=== PATIENT | female | born 1960 | race Caucasian/White ===

== ENCOUNTER 2017-02-22 07:01 | Day surgery (SDC) | payer OTHER ==
[~2017-02-22] VITALS: Ht 167.6 cm; Wt 67.1 kg
--- NOTE | ~2017-02-22 | CATH ---
Cardiac Diagnostic Report Demographics Patient Name ALEJANDRA Walsh Gender Female Date of 1960 Age 56 year(s) Patient Number [id number] Date of Study 02/22/2017 Visit Number [id number] Room Number Corporate ID Ht 167.64 cm Wt 66.22 kg Accession Number [id number] BSA 1.75 m kg/m Referring Phoebe HOFF Primary Physician Physician Jon LOMBARDO Performing Phoebe HOFF Secondary Physician Physician Jon Diagnostic Phoebe HOFF Assisting Physician Physician Jon Interventional Physician Locomotive Electrician Physician Findings and Conclusions Diagnostic Findings and Conclusion Normal coronary arteries Diagnostic Recommendations Primary prevention Evaluate for other noncardiac etiology of chest pain. Procedure Description The patient was brought to the diagnostic cardiac catheterization-EP laboratory in the fasting, non-sedated state. Informed consent was obtained in the written and verbal form after the risks and benefits were explained. The patient had no further questions and agreed to proceed. The planned puncture-incision site(s) were shaved and prepped with ChloraPrep and draped in the usual sterile manner. Conscious sedation, supplemental oxygen, and pain control medications were delivered by a registered nurse under physician guidance. Surface ECG rhythm, blood pressure measurement, and pulse oximetry were monitored throughout the procedure. Arterial access. The right radial access site was infiltrated with lidocaine. The vessel was entered with the Seldinger technique. A 5f radial sheath was advanced into the vessel and used for catheter placement. Selective left coronary angiography. A TIG catheter was advanced into the left coronary vessel ostium under Fluoroscopic guidance. Contrast was injected by hand. Images were obtained in multiple projections. Selective right coronary angiography. A catheter was advanced into the right coronary vessel ostium under fluoroscopic guidance. Contrast was injected by hand. Images were obtained in multiple projections. Left heart catheterization. A catheter was advanced across the aortic valve to the left ventricle under fluoroscopic guidance. Resting hemodynamics were obtained. Arterial artery hemostasis was achieved with application of TR band The patient was transferred to a regular nursing floor via cart accompanied by a nurse. The patient left the laboratory in stable condition. Diagnostic Cath Status: Elective Procedure Procedure Type Diagnostic procedure:Angiography:, Coronary Angios Indications: Chest discomfort. The procedure was explained in detail to the patient. Risks, complications and alternative treatments were reviewed. Written consent was obtained. Medications Reviewed with Patient prior to Procedure. Complications: No Complication. Angiographic Findings Dominance: Right Cardiac Arteries and Lesion Findings LMCA: Normal (0% Stenosis). LAD: Normal (0% Stenosis). LCx: Normal (0% Stenosis). RCA: Normal (0% Stenosis). Procedure Data Procedure Date Date: 02/22/2017Start: 09:18 AMEnd: 09:42 AM Entry Locations - Retrograde Percutaneous access was performed through the Right Radial artery. A 6 Fr sheath was inserted. Hemostasis was successfully obtained using a TR band. Procedure Medications Order and Administration + + +-------+------+ !Time !Medication !Dosage !Route ! + + +-------+------+ !02/22/2017 09:17 AM !Versed !1 mg !I.V. ! + + +-------+------+ 02/22/2017 09:17 AM !Fentanyl !25 mcg !I.V. ! + + +-------+------+ !02/22/2017 09:18 AM !Versed !1 mg !I.V. ! + + +-------+------+ !02/22/2017 09:20 AM !Versed !1 mg !I.V. ! + + +-------+------+ !02/22/2017 09:20 AM !Fentanyl !25 mcg !I.V. ! + + +-------+------+ Devices Used - StormpulseF TIG CATHETERwas used for:Coronary Angios. Contrast Material - Isovue 55464 ml Fluoroscopy Time: Diagnostic: 0:00 minutes. Total: 0:00 minutes. Fluoroscopy Dose: Diagnostic: 160 mGy. Total: 160 mGy. Estimated Blood Loss: 10 ml. Medical History Risk Factors The patient risk factors include:treated hypercholesterolemia, treated hypertension, last creatinine: 0.9 mg/dl, creatinine clearance: 74.71 ml/min and dyslipidemia. Admission Data Admission Date: 02/22/2017 Admission Time: 07:01 AM Arrival Date: 02/22/2017 Arrival Time: 08:45 AM Admit Source: Other Clinical Evaluation Leading to Procedure - The patient's CAD presentation was assessed as: Unstable angina. - The patient's anginal syndrome during the past two weeks was assessed as: Class III according to the [place] [employer] Classification System (CCS). Anti-anginal medications were prescribed during the past two weeks. The medications are: Beta Blockers and Ranolazine. Hemodynamics Condition: Rest O2 Consumption: Estimated: 163.66Heart Rate: 62 bpm Pressures (mmHg) +-----+ + !Site !Pressure ! +-----+ + !AO !79/47 (60) ! +-----+ + Shunts Oxygen Values O2 Capacity 165.92 O2 Consumption 163.66 Discharge Data Discharge Date: 02/22/2017 Hospital Status: Outpatient Signatures
== END 2017-02-22 13:15 | disposition home or self-care (01) ==
LOC: SSS 07:01
DX: I20.0 Unstable angina (principal); E78.5 Hyperlipidemia, unspecified; Z88.0 Allergy status to penicillin; R53.83 Other fatigue; Z90.710 Acquired absence of both cervix and uterus; Z98.890 Other specified postprocedural states; Z79.899 Other long term (current) drug therapy

== ENCOUNTER 2017-02-23 23:30 | Emergency (ER) | payer OTHER ==
--- NOTE | 2017-02-24 19:21 | ER ---
ADMIT: 02/23/2017 RM/LOC: ER [facility] MR#: [id number] [address] [facility] [id number] [place], [place] [id number] RAE ROBERTS [address] [address] Emergency Room Report SEX: F AGE: 56 : 1960 DATE: 02/23/2017 A 56-year-old female, complaining of substernal chest discomfort for the past [address] Sandhu, had negative Lexiscan and negative heart cath yesterday and sent home on Holter and metoprolol as well as aspirin. Exam remarkable for nontoxic anxious female. Normal EKG, chest x-ray, D-dimer, troponin, lipase, CRP, lactic and EKG shows right bundle-branch block with inferior lateral ST changes. Chest x-ray, unremarkable. The patient was given Xanax, GI cocktail with marked improvement. Home with Xanax 0.25 mg sublingual t.i.d. p.r.n. #20 and liquid antacids as needed. Follow up Dr. Sandhu next week. Carlos Rodriguez MD/ mahogany JOB #: [id number] CC: Carlos Rodriguez MD, Attending Physician Radha Unger, Family Physician
== END 2017-02-24 01:48 | disposition home or self-care (01) ==
LOC: ER 23:30
DX: I45.10 Unspecified right bundle-branch block (principal); Z88.0 Allergy status to penicillin; Z90.710 Acquired absence of both cervix and uterus; Z79.899 Other long term (current) drug therapy

== ENCOUNTER → 2017-03-26 | Outpatient (CLI) | payer OTHER | END | disposition home or self-care (01) | LOC: RESC 03-22 13:32 | DX: R06.02 Shortness of breath (principal) ==